=== PATIENT | male | born 1990 | race African-American/Black ===

== ENCOUNTER 2023-11-13 14:17 | Emergency (ER) | payer SELFPAY ==
[2023-11-13] MEDS ORDERED: Bupivacaine PF 0.5% 30 ML VIAL ONE (14:31)
== END 2023-11-13 14:50 | disposition home or self-care (01) ==
LOC: CSHERS 14:17
DX: K04.7 Periapical abscess without sinus (principal)
CPT/HCPCS: 64400; 99282; J0665